=== PATIENT | female | born 1985 | race Two or more races ===

== ENCOUNTER 2023-09-30 08:33 | Outpatient (CLI) | payer OTHER | END 2023-09-30 08:46 | disposition home or self-care (01) | LOC: RX STUDY 08:33 | DX: R13.14 Dysphagia, pharyngoesophageal phase (principal) ==

== ENCOUNTER 2025-02-08 11:00 | Inpatient (IN) | payer OTHER ==
[~2025-02-08] VITALS: Ht 157.5 cm; Wt 73.5 kg
[2025-02-08] MEDS ORDERED: SYNTHROID137 MCG PO (12:18)
[2025-02-08] MEDS ORDERED: VISTARIL50 MG/ML PO (12:18)
[2025-02-08] MEDS ORDERED: VIVLODEX5 MG PO (12:19)
[2025-02-08] MEDS ORDERED: CALCIUM CIT-VI1 EAC1 PO (12:19)
[2025-02-08] MEDS ORDERED: CALCITRIOL0.5 MCG PO (12:19)
[2025-02-08 16:20] LABS: RH POSITIVE
[2025-02-11] MEDS ORDERED: BUPIVACAINE HCL/PF 0.25% 30ML VIAL InF ONE (09:30)
[2025-02-11] MEDS ORDERED: POVIDONE-IODINE 118 ML BOTT TOP ONE (09:30)
[2025-02-11] MEDS ORDERED: CEFAZOLIN SODIUM 1,000 MG VIAL IV ONE (09:30)
[2025-02-11] MEDS ORDERED: SURGIFLO APPLICATOR 1 EACH APPL TOP ONE (10:45)
[2025-02-11] MEDS ORDERED: HEMOSTATIC MATRIX 1 KIT KIT TOP ONE (10:45)
[2025-02-11] MEDS ORDERED: MORPHINE SULFATE 4 MG/ML VIAL IV ONE (11:05)
[2025-02-11] MEDS ORDERED: MORPHINE SULFATE 4 MG/ML CARTRIDGE IV PRN (11:45)
[2025-02-11] MEDS ORDERED: RINGERS SOLUTION,LACTATED 1,000 ML IV SCH (11:45)
[2025-02-11] MEDS ORDERED: ONDANSETRON HCL 2 MG/ML VIAL IV PRN (11:45)
[2025-02-11] MEDS ORDERED: PANTOPRAZOLE SO40 MG (13:25)
[2025-02-11] MEDS ORDERED: SIMVASTATIN20 MG (13:25)
[2025-02-11 14:30] VITALS: BP 137/88; O2SAT 96
[2025-02-11] MEDS ORDERED: CEFOXITIN SODIUM 2,000 MG VIAL IV SCH (17:00)
[2025-02-11 20:39] LABS: BASO % 0.2 % (0.1-1.2); EOS # 0.02 (0.04-0.54); EOS % 0.2 % (0.7-7.0); LYMPH # 0.86 (1.18-3.74); LYMPH % 7.2 % (19.3-53.1); MEAN PLATELET VOLUME 9.60 fl (9.4-12.4); MONO # 0.63 (0.24-0.82); MONO % 5.3 % (4.7-12.5); NEUT # 10.34 (1.56-6.13); NEUT % 86.5 % (34.0-71.1); RED CELL DISTRIBUTION WIDTH 14.7 % (11.6-14.4)
[2025-02-11] MEDS ORDERED: ENOXAPARIN SODIUM 40 MG/0.4 ML SYRINGE SUBCUTANEO SCH (21:00)
[2025-02-11] MEDS ORDERED: KETOROLAC TROMETHAMINE 30 MG VIAL IV SCH ×2 (21:00)
[2025-02-11 21:03] VITALS: BP 147/92; O2SAT 95
[2025-02-12 01:34] VITALS: BP 106/65; O2SAT 97
[2025-02-12 08:00] VITALS: BP 129/88; O2SAT 97
[2025-02-12] MEDS ORDERED: DOCUSATE SODIUM 100MG CAP PO SCH (09:45)
[2025-02-12] MEDS ORDERED: ORPHENADRINE CITRATE 30 MG/ML AMPUL IV PRN (09:45)
[2025-02-12 16:00] VITALS: BP 127/88; O2SAT 97
[2025-02-12 19:48] LABS: BASO % 0.1 % (0.1-1.2); EOS # 0.03 (0.04-0.54); EOS % 0.3 % (0.7-7.0); LYMPH # 1.14 (1.18-3.74); LYMPH % 10.8 % (19.3-53.1); MEAN PLATELET VOLUME 9.60 fl (9.4-12.4); MONO # 0.65 (0.24-0.82); MONO % 6.1 % (4.7-12.5); NEUT # 8.72 (1.56-6.13); NEUT % 82.2 % (34.0-71.1); RED CELL DISTRIBUTION WIDTH 14.7 % (11.6-14.4)
[2025-02-13 01:12] VITALS: BP 116/75; O2SAT 100
[2025-02-13 08:15] VITALS: BP 127/80; O2SAT 100
[2025-02-13] MEDS ORDERED: PROTONIX20 MG PO (13:56)
[2025-02-13] MEDS ORDERED: MAXFE CAPLET1 EAC1 PO (13:56)
[2025-02-13] MEDS ORDERED: ZANTAC-360 (FAM20 MG PO (13:56)
[2025-02-13] MEDS ORDERED: KETO10TA2 PO (13:56)
== END 2025-02-13 15:00 | disposition home or self-care (01) | DRG 743 ==
LOC: OB/GYN 02-11 07:00 → O/R 02-11 10:28 → OB/GYN 02-11 11:00 → SURG 02-11 14:21
PROVIDERS: ADMIT Obstetrics & Gynecology; ATTEND Obstetrics & Gynecology
PROC: 0UT74ZZ Resection of Bilateral Fallopian Tubes, Percutaneous Endoscopic Approach (ICD-10-PCS; 2025-02-11)
PROC: 0USG4ZZ Reposition Vagina, Percutaneous Endoscopic Approach (ICD-10-PCS; 2025-02-11)
PROC: 0UT94ZZ Resection of Uterus, Percutaneous Endoscopic Approach (ICD-10-PCS; principal; 2025-02-11 07:00)
DX: D25.2 Subserosal leiomyoma of uterus (principal); N84.0 Polyp of corpus uteri; D50.8 Other iron deficiency anemias